=== PATIENT | female | born 1980 | race Caucasian/White ===

== ENCOUNTER 2021-12-03 16:16 | Emergency (ER) | payer BC ==
[~2021-12-03] VITALS: Ht 165.1 cm; Wt 72.7 kg
[~2021-12-03 16:16] MED LIST: AMOX125S11 PO; IBUP-1984 PO; NORG1TAB42 PO; PROM25TA14 PO; ZOLP5TAB8 PO
[2021-12-03 16:47] VITALS: BP 167/106
[2021-12-03] MEDS ORDERED: ibuprofen tablet 400 MG TABLET PO ONE (18:10)
[2021-12-03] MEDS ORDERED: HYDR-3965 PO (19:18)
== END 2021-12-03 19:21 | disposition home or self-care (01) ==
LOC: ER 16:17
DX: S92.002A Unspecified fracture of left calcaneus, initial encounter for closed fracture (principal); Z88.8 Allergy status to other drugs, medicaments and biological substances; Z79.2 Long term (current) use of antibiotics; Z79.899 Other long term (current) drug therapy; X50.1XXA Overexertion from prolonged static or awkward postures, initial encounter; Y93.01 Activity, walking, marching and hiking; Y92.89 Other specified places as the place of occurrence of the external cause; Y99.8 Other external cause status
CPT/HCPCS: 29515; 73630; 99283